=== PATIENT | female | born 1980 | race Caucasian/White ===

== ENCOUNTER 2021-06-02 20:57 | Emergency (ER) | payer OTHER ==
[2021-06-02] MEDS ORDERED: Ibuprofen 200 MG TAB ONE (22:14)
== END 2021-06-02 22:12 | disposition home or self-care (01) ==
LOC: CSHERS 20:57
DX: N61.0 Mastitis without abscess (principal); K21.9 Gastro-esophageal reflux disease without esophagitis; J44.9 Chronic obstructive pulmonary disease, unspecified; E66.9 Obesity, unspecified; F17.210 Nicotine dependence, cigarettes, uncomplicated
CPT/HCPCS: 99283